=== PATIENT | female | born 1985 | race Caucasian/White ===

== ENCOUNTER 2018-09-17 11:40 | Emergency (ER) | payer OTHER ==
[2018-09-17 11:49] VITALS: BP 109/70; PULSE 57; RESP 18; TEMP 98.2; O2SAT 100
[2018-09-17 11:50] VITALS: BMI 26.6
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
== END 2018-09-17 14:20 | disposition home or self-care (01) ==
LOC: H.ER 11:40
DX: S16.1XXA Strain of muscle, fascia and tendon at neck level, initial encounter (principal); M54.2 Cervicalgia; V49.40XA Driver injured in collision with unspecified motor vehicles in traffic accident, initial encounter
CPT/HCPCS: 81025; 96372; 99285; J1885